=== PATIENT | female | born 2000 | race African-American/Black ===

== ENCOUNTER 2020-05-13 12:42 | Emergency (ER) | payer SELFPAY ==
[2020-05-13 13:38] LABS: ABSOLUTE LYMPHOCYTES (AUTO) 1.7 10^3/uL (0.5-4.7); ABSOLUTE MONOCYTES (AUTO) 0.5 10^3/uL (0.1-1.4); ABSOLUTE NEUT (AUTO) 4.4 10^3/uL (1.7-8.2); BASOPHILS % (AUTO) 0.5 % (0-2); EOSINOPHILS % (AUTO) 0.6 % (0-6); HEMATOCRIT 40.7 % (36.0-47.0); HEMOGLOBIN 13.9 g/dL (12.0-15.5); LYMPHOCYTES % (AUTO) 25.7 % (13-45); MEAN CORPUSCULAR HEMOGLOBIN 30.4 pg (27.0-33.4); MEAN CORPUSCULAR HGB CONC 34.2 g/dL (32.0-36.0); MEAN CORPUSCULAR VOLUME 89 fl (80-97); MONOCYTES % (AUTO) 7.2 % (3-13); PLATELET COUNT 210 10^3/uL (150-450); RED BLOOD COUNT 4.57 10^6/uL (3.72-5.28); RED CELL DISTRIBUTION WIDTH 15.1 % (11.5-14.0); TOTAL CELLS COUNTED % (AUTO) 100 %; WHITE BLOOD COUNT 6.7 10^3/uL (4.0-10.5)
[2020-05-13 13:59] LABS: ALBUMIN 3.8 g/dL (3.5-5.0); ALKALINE PHOSPHATASE 45 U/L (38-126); ANION GAP 5 (5-19); ASPARTATE AMINO TRANSFERASE 25 U/L (14-36); BILIRUBIN,TOTAL 0.7 mg/dL (0.2-1.3); BLOOD UREA NITROGEN 14 mg/dL (7-20); CALCIUM 9.3 mg/dL (8.4-10.2); CARBON DIOXIDE 27 mmol/L (22-30); CHLORIDE 105 mmol/L (98-107); GLUCOSE 85 mg/dL (75-110); POTASSIUM 3.9 mmol/L (3.6-5.0); TOTAL PROTEIN 7.1 g/dL (6.3-8.2)
[2020-05-13 14:01] LABS: ACETAMINOPHEN < 10 ug/mL (10-30); ALCOHOL < 10 mg/dL (NONE DETECTED); SALICYLATE < 1.0 mg/dL (2.0-20.0)
[2020-05-13 14:06] LABS: APPEARANCE,URINE SLIGHTLY-CLOUDY; BILIRUBIN,URINE NEGATIVE (NEGATIVE); COLOR,URINE DARK YELLOW; GLUCOSE, URINE NEGATIVE (NEGATIVE); KETONES,URINE 20 mg/dL (NEGATIVE); LEUKOCYTE ESTERASE,URINE TRACE (NEGATIVE); NITRITE,URINE POSITIVE (NEGATIVE); PROTEIN,URINE 100 mg/dL (NEGATIVE); URINE SPECIFIC GRAVITY 1.028
[2020-05-13 14:26] LABS: URINE AMPHETAMINES SCREEN NEGATIVE; URINE BARBITURATES SCREEN NEGATIVE; URINE BENZODIAZEPINES SCREEN NEGATIVE; URINE COCAINE SCREEN NEGATIVE; URINE METHADONE SCREEN NEGATIVE; URINE PHENCYCLIDINE SCREEN NEGATIVE
[2020-05-13 14:27] LABS: URINE MARIJUANA (THC) SCREEN UNCONFIRMED POSITIVE
--- NOTE | 2020-05-13 16:26 | PSYCHOLOGICAL NOTE ---
Psych Note - Psych Note Date seen by psych provider: 05/13/20 Time seen by psych provider: 14:10 Psych Note: Reason for Consult: Panic Attack/ Self Harm Cutting Patient is alert and orientated to person, place, time and circumstance. Mood is euthymic with congruent affect as evidenced by smiling, laughing and engaging with clinician. Patient denies suicidal and homicidal ideation; admitts to maldaptive coping skilling of cutting. Delusions are absent and behaviors congruent with an intact reality based presentation ie organized and linear thought process. Eye contact is well-maintained. Conversational speech is within normal rate, tone and prosody. Intellectual abilities appear to be within the average range. Attention and concentration are good. Insight, judgment, impulse control are fair. Patient is well groomed with hair done. Clinician presentation: calm- no psychomotor agitation Maladaptive coping skill of cutting- superficial cuts failed attempt at therapeutic conversation with father Impression\plan:Patient is cleared from acute psychiatric services. Dr. Morel was consulted to care management of this patient; attending physicians in agreement with recommendations and disposition.
[2020-05-13] MEDS ORDERED: DIPH/PERTUSS(ACELL)/TETANUS VAC/PF 0.5 ML SYR (>=10YO) IM ONE (16:29)
--- NOTE | 2020-05-13 16:42 | ER Document Report ---
ED General - General Chief Complaint: Psych Problem Stated Complaint: ANXIETY Time Seen by Provider: 05/13/20 14:39 - HPI Notes: Chief complaint: Anxiety and self-mutilation HPI: 19-year-old female with history of anxiety got into a verbal altercation with her father today and started crying uncontrollably. Patient has a history of cutting herself superficially in the past for stress relief. She resorted to the same outlet today inflicting multiple superficial abrasions over the volar aspect of both forearms. She denies any true suicidal intent. She was transported here by EMS hyperventilating. She feels much better now. She denies any suicidal or homicidal ideation. She denies auditory or verbal hallucinations. States that she does not consume alcohol. Occasionally smokes marijuana. Denies any other drug abuse. Last tetanus booster greater than 5 years ago. - Related Data Allergies/Adverse Reactions: No Known Allergies Allergy (Verified 05/13/20 14:01) Past Medical History - General Information source: Patient, Emergency Med Personnel - Social History Smoking Status: Never Smoker Frequency of alcohol use: None Drug Abuse: Marijuana Lives with: Family Family History: Reviewed & Not Pertinent Patient has suicidal ideation: No Patient has homicidal ideation: No - Medical History Medical History: Negative Psychiatric Medical History: Reports: Hx Depression Review of Systems - Review of Systems Notes: Constitutional: Negative for fever. HENT: Negative for sore throat. Eyes: Negative for visual changes. Cardiovascular: Negative for chest pain. Respiratory: Negative for shortness of breath. Gastrointestinal: Negative for abdominal pain, vomiting or diarrhea. Genitourinary: Negative for dysuria. Musculoskeletal: Negative for back pain. Skin: As per HPI. Neurological: Negative for headaches, weakness or numbness. 10 point ROS negative except as marked above and in HPI. Physical Exam - Vital signs Vitals: Temp Pulse Resp BP Pulse Ox 98.9 F 89 17 110/59 L 99 05/13/20 12:53 05/13/20 12:53 05/13/20 12:53 05/13/20 12:53 05/13/20 12:53 - Notes Notes: GENERAL: Well-developed well-nourished female approximately stated age appearing in no acute distress. SKIN: Multiple superficial transverse abrasions volar aspect both forearms. Good turgor no rashes. HEAD: Normocephalic atraumatic. EYES: PERRLA. EOMI. Conjunctivae and sclerae clear. EARS: CANALS AND TMS CLEAR. NOSE: CLEAR. MOUTH: Moist mucosa. Good dentition. No stridor or edema. No drooling. NECK: Supple. No masses or thyromegaly. No adenopathy. Carotids 2+ without bruits. No JVD. BACK: Symmetrical without tenderness. CHEST: Respirations unlabored. Breath sounds clear and symmetrical. HEART: Regular rhythm. No murmur gallop or rub. ABDOMEN: Soft nontender without masses, organomegaly or rebound. Bowel sounds normally active. No bruits. GENITALIA: Deferred. EXTREMITIES: Forearm abrasions as noted above. No edema. No calf tenderness. Cap refill less than 1.5 seconds. Dorsalis pedis and posterior tibial pulses 3+ and symmetrical. NEUROLOGICAL: GCS 15. Alert and oriented x3. Normal gait. Fluent speech. Cranial nerves II through XII intact. Sensorimotor and cerebellar normal. Normal tone. PSYCHIATRIC: Tearful initially and subsequently exhibiting appropriate affect. Course - Re-evaluation Re-evalutation: 05/13/20 16:43 Urine drug screen positive only for THC. I think the patient is clear from a medical standpoint. We will clean and dress the superficial abrasions of both forearms and provide a tetanus booster. She has been seen by mental health service and I concur that she is safe for outpatient follow-up for counseling. 05/13/20 16:44 - Vital Signs Vital signs: Temp Pulse Resp BP Pulse Ox 98.9 F 89 17 110/59 L 99 05/13/20 12:53 05/13/20 12:53 05/13/20 12:53 05/13/20 12:53 05/13/20 12:53 - Laboratory Result Diagrams: 05/13/20 13:27 05/13/20 13:27 Laboratory results interpreted by me: 05/13/20 05/13/20 05/13/20 13:27 13:27 13:27 RDW 15.1 H Sodium 136.8 L Urine Protein 100 H Urine Ketones 20 H Urine Nitrite POSITIVE H Urine Urobilinogen 4.0 H Ur Leukocyte Esterase TRACE H Salicylates < 1.0 L Acetaminophen < 10 L Discharge - Discharge Clinical Impression: Maladaptive coping skill of cutting, Anxiety in acute stress reaction Condition: Stable Disposition: HOME, SELF-CARE Additional Instructions: Outpatient mental health follow-up as per counselor's recommendation.
[2020-05-13 16:57] VITALS: BP 86/52
--- NOTE | 2020-05-13 19:29 | EKG REPORT ---
SEVERITY:- NORMAL ECG - SINUS RHYTHM ST ELEV, PROBABLE NORMAL EARLY REPOL PATTERN : Confirmed by: Ervin Rene 13-May-2020 19:28:43
== END 2020-05-13 16:56 | disposition home or self-care (01) ==
LOC: ER 12:42
DX: F41.9 Anxiety disorder, unspecified (principal); F43.0 Acute stress reaction; S50.812A Abrasion of left forearm, initial encounter; S50.811A Abrasion of right forearm, initial encounter; X78.9XXA Intentional self-harm by unspecified sharp object, initial encounter; Y92.009 Unspecified place in unspecified non-institutional (private) residence as the place of occurrence of the external cause; Z62.820 Parent-biological child conflict; Z23 Encounter for immunization; F12.10 Cannabis abuse, uncomplicated
CPT/HCPCS: 36415; 80053; 80307; 81001; 85025; 90471; 90715; 93005; 93010; 99284